=== PATIENT | female | born 1950 | race Caucasian/White ===

== ENCOUNTER 2016-09-20 08:36 | Day surgery (SDC) ==
[2016-09-20] MEDS ORDERED: LR 1,000 ML ONE (09:21)
[2016-09-20] MEDS ORDERED: MYLICON DROPS (DOSE) MISC ONE (11:49)
[2016-09-20] MEDS ORDERED: DIPRIVAN 1% ONE (12:26)
[2016-09-20 12:45] VITALS: BP 121/71
--- NOTE | 2016-09-25 04:21 | OPERATIVE NOTE ---
PROCEDURE DATE: 09/20/2016 REFERRING PHYSICIAN: Heath Peters MD. INDICATIONS FOR PROCEDURE: 1. Dysphagia. 2. Nausea. PROCEDURE PERFORMED: Esophagogastroduodenoscopy with dilation. CONSENT: Informed consent was obtained from the patient prior to the procedure. The risks, benefits, and alternatives were discussed with the patient and her family. MEDICATIONS: The patient received monitored anesthesia care. PERFORMING PHYSICIAN: Kindra Woodruff MD. ASSISTANTS: 1. [facility] 2. Grayson Morales RN. 3. Good [place] CRNA. 4. Deon Pantoja MD (anesthesia). COMPLICATIONS: There were no complications. ESTIMATED BLOOD LOSS: Less than 1 mL. SPECIMENS REMOVED: None. FINDINGS: After sedation was achieved, the upper endoscope was inserted to the efferent jejunum. The hypopharynx and tubular esophagus appeared normal to 34 cm. Between 34 and 35 cm, there was pill esophagitis with still dissolving pills adherent to the esophageal mucosa. The GE junction was measured at 35 cm from the incisors. There was mild resistance with passage of the scope through the lower esophagus. In the stomach, there were surgical changes consistent with a Mary- en-Y gastric bypass. The gastric pouch spanned from 35-40 cm. There was gastritis in the pouch. The gastrojejunal anastomosis appeared endoscopically normal. The efferent and the afferent jejunum appeared endoscopically normal. After the exam was complete, the scope was retracted into the gastric lumen. A balloon dilator was inserted via the scope and inflated to 18, 19, and 20 mm. Post dilation, there was decreased resistance and a small amount of heme at the lower esophageal sphincter consistent with esophageal dilation. Due to coughing, the upper esophageal sphincter was dilated at the time of the exam. The lumen was decompressed and the scope was removed without incident. IMPRESSION: 1. Normal hypopharynx. 2. Normal tubular esophagus. 3. Pill esophagitis. 4. Increased resistance at the lower esophageal sphincter at 35 cm. 5. Gastritis in the gastric pouch. 6. Normal gastrojejunal anastomosis. 7. Normal jejunum. 8. Successful dilation of the lower esophageal sphincter. RECOMMENDATION: 1. Continue Protonix 40 mg daily. 2. Begin 12 weeks of Carafate 1 g 4 times a day. 3. Consider a repeat modified barium swallow if symptoms persist. 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 4. Consider a repeat endoscopy if symptoms persist. 5. We will have the patient return to clinic in 3 months to assess interval progress.
== END 2016-09-20 13:06 | disposition home or self-care (01) ==
LOC: ENDO 08:36
PROVIDERS: ATTEND Internal Medicine Gastroenterology
DX: R13.12 Dysphagia, oropharyngeal phase (principal); K21.0 Gastro-esophageal reflux disease with esophagitis; K29.70 Gastritis, unspecified, without bleeding; K22.0 Achalasia of cardia; K58.9 Irritable bowel syndrome, unspecified; K59.01 Slow transit constipation; R10.11 Right upper quadrant pain; Z86.010 Personal history of colon polyps; E66.01 Morbid (severe) obesity due to excess calories; Z68.41 Body mass index [BMI] 40.0-44.9, adult; R11.2 Nausea with vomiting, unspecified; M19.90 Unspecified osteoarthritis, unspecified site; R53.83 Other fatigue; Z63.79 Other stressful life events affecting family and household; M21.371 Foot drop, right foot; Z98.84 Bariatric surgery status; Z96.651 Presence of right artificial knee joint; Z72.0 Tobacco use; Z79.899 Other long term (current) drug therapy; Z86.73 Personal history of transient ischemic attack (TIA), and cerebral infarction without residual deficits; Z79.891 Long term (current) use of opiate analgesic; Z79.02 Long term (current) use of antithrombotics/antiplatelets; Z80.0 Family history of malignant neoplasm of digestive organs; Z80.1 Family history of malignant neoplasm of trachea, bronchus and lung
CPT/HCPCS: J7120

== ENCOUNTER 2019-05-17 04:03 | Inpatient (IN) ==
[2019-05-17 04:43] LABS: BASO# 0.06 X1000 (0.0-0.2); BASO% 0.6 % (0.0-0.8); EOS# 0.22 X1000 (0.0-0.7); EOS% 2.1 % (0.0-10.0); HEMATOCRIT 42.4 % (37.0-47.0); HEMOGLOBIN 12.7 g/dL (12.0-16.0); IMM GRAN# 0.05 X1000 (0.0-0.04); IMM GRAN% 0.5 % (0.0-0.5); LYMPH# 1.34 X1000 (1.2-3.4); LYMPH% 12.8 % (20.5-51.1); MCH 30.5 PG (27-31); MCV 101.9 FL (81-99); MONO# 0.69 X1000 (0.11-0.59); MONO% 6.6 % (1.7-9.3); MPV 10.2 FL (7.4-10.4); NEUT# 8.11 X1000 (1.4-6.5); NEUT% 77.4 % (42.2-75.2); PLT 340 X1000 (130-400); RBC 4.16 XMIL (4.2-5.4); RDW 15.2 % (11.5-14.5); WBC 10.47 X1000 (4.8-10.8)
--- NOTE | 2019-05-17 05:03 | PROVIDER DOCUMENTATION ---
HPI-Syncope/Dizziness - General Chief Complaint: Fall Stated Complaint: fall Time Seen by Provider: 05/17/19 04:11 Source: patient, other (home caregiver) Allergies/Adverse Reactions: Patient Allergies Allergy/AdvReac Type Severity Reaction Status Date / Time codeine [Codeine] Allergy Unknown "MAKES ME Verified 04/01/19 12:38 STOP BREATHING" fentanyl Allergy ANAPHYLAXIS Verified 04/01/19 12:38 heparin Allergy Unknown Verified 04/01/19 12:38 Home Medications: Home Medication List Medication Instructions Recorded Confirmed Last Taken Type Tolterodine [Detrol] 2 mg PO BID 09/23/13 09/28/18 09/28/18 02:30 History Dabigatran Etexilate Mesylate 150 mg PO BID 06/23/14 09/28/18 09/23/18 History [Pradaxa] Dicyclomine HCl 10 mg PO BID 06/23/14 09/28/18 09/28/18 02:30 History Paroxetine [Paxil] 20 mg PO DAILY 01/29/15 09/28/18 09/28/18 02:30 History Pantoprazole [Protonix] 40 mg PO DAILY@0700 10/13/15 09/28/18 09/28/18 02:30 History Atorvastatin Calcium [Lipitor] 20 mg PO QHS 10/14/15 09/28/18 09/27/18 21:00 History Gabapentin [Neurontin] 800 mg PO TID 10/14/15 09/28/18 09/28/18 02:30 History Cbd Oil 1 drp PO DAILY 09/10/18 Unknown History Cholecalciferol (Vit D3) [Vitamin 5,000 unit PO ORDERED 09/10/18 09/10/18 Unknown History D] Cyanocobalamin 1,000 mcg IM DIRECTED 09/10/18 09/10/18 Unknown History Iron,Carbonyl [Iron] 45 mg PO DAILY 09/10/18 09/10/18 Unknown History Potassium 99 mg PO DAILY 09/10/18 09/10/18 Unknown History Oxycodone E.r. [Oxycontin] 10 mg PO TID PRN PRN 09/28/18 09/28/18 Unknown History Etodolac [Lodine] 400 mg PO BID CC #20 tab 04/01/19 Unknown Rx Nitrofurantoin Macrocrystal 100 mg PO BID #20 cap 04/01/19 Unknown Rx [Macrodantin] - History of Present Illness-Syncope/Dizzy Nature of Presenting Problem: 68 y/o WF brought to ER after falling out of her bed tonight landing on her rear per lawn caretaker. Caregiver also notes that pt has hx of taking too much of her muscle relaxers and might have taken too much last night. contracts analyst also notes that pt has had several falls recently due to her being dizzy. Pt has hx of chronic low back pain with recent epidurals. Pt will only speak to caregiver and not to staff at all. Caregiver notes that pt is usually normally very talkative and has no difficulty with speech. Prior Episodes: reports: recent history (dizziness and falls) Onset/Duration: reports: 4-6 hours ago Timing: reports: still present Position/Activity at time of episode: reports: lying (fell out of bed) Symptoms prior to episode: reports: unknown Context: reports: other (fell out of bed and notes being dizzy.) Loss of Consciousness: no loss of consciousness Location of injury. (If syncope resulted in an injury.): reports: none Current Symptoms: reports: dizzy Recently Seen Here or By Another Healthcare Provider: No - Dizziness Severity in ED: reports: moderate Dizziness Related Current/Associated Symptoms: reports: dizzy, chronic dizziness Any recent trauma/injury?: reports: minor Modifying Factors: improves with: movement of head Patient usually:: reports: walks without assistance Review of Systems - Adult - REVIEW OF SYSTEMS - ADULT ROS:: limited per condition (pt is a poor historian and refuses to talk to staff.) Constitutional: reports: no symptoms reported, see HPI Eyes: reports: no symptoms reported, see HPI Ears, Nose, Mouth & Throat: reports: no symptoms reported, see HPI Cardiovascular: reports: no symptoms reported, see HPI Respiratory: reports: no symptoms reported, see HPI Gastrointestinal: reports: no symptoms reported, see HPI Genitourinary: reports: no symptoms reported, see HPI Musculoskeletal: reports: no symptoms reported, see HPI Integumentary: reports: no symptoms reported, see HPI Neurological: reports: dizziness/vertigo, other (difficulty with speech) Psychiatric: reports: no symptoms reported, see HPI Endocrine: reports: no symptoms reported, see HPI Hematologic/Lymphatic: reports: no symptoms reported, see HPI Allergic/Immunologic: reports: no symptoms reported, see HPI All Other Systems: Reviewed and Negative Past History - Adult - PAST MEDICAL HISTORY-ADULT Review of Records: reports: Nursing Assessment Review, Medications Reviewed, Social history reviewed & non-contributory. Major Childhood Illnesses: reports: denies history Cardiovascular: reports: CHF, HTN, hyperlipidemia Respiratory: reports: COPD Gastrointestinal: reports: Crohn's, GERD Obstetrical/Gynecological: reports: denies history Genitourinary: reports: kidney disease Musculoskeletal: reports: denies history Neurological: reports: CVA, headaches/migraines Psychiatric: reports: depression Endocrine/Immune: reports: denies history Other Conditions: reports: cataract/glaucoma, other (left macular degeneration) - PRIOR SURGERIES/PROCEDURES Surgical/Procedure History: reports: cholecystectomy, hysterectomy, , tonsillectomy, other (Gastric Bypass, Total knee replacement, hernia repair, lumbar x2, abby filter, femur repair, colon resection) - PRIOR HOSPITALIZATIONS Prior Hospitalizations: reports: for similar symptoms (pt was seen in the er yeterday) - IMMUNIZATION STATUS Childhood Immunizations: See Nurse Assessment Flu Vaccine: See Nurse Assessment - FAMILY HISTORY Family History: reviewed, not pertinent Physical Exam-General - PHYSICAL EXAM-ADULT Exam Limited by: pt condition and refusing to speak to staff Initial Vital Signs Reviewed: Yes - CONSTITUTIONAL General Appearance: mild distress, slow to respond - EYES Eyes: PERRL/EOMI - HEAD, EARS, NOSE, MOUTH & THROAT HENMT: normocephalic/atraumatic, moist mucous membranes - NECK Neck: non-tender, full range of motion, supple, normal inspection - RESPIRATORY Respiratory: chest non-tender, lungs clear, normal breath sounds, no pleuratic chest pain, no respiratory distress, no accessory muscle use - CARDIOVASCULAR Cardiovascular: normal peripheral pulses, regular rate, rhythm, no edema, no gallop, no JVD, no murmur - GASTROINTESTINAL (ABDOMEN) Abdominal Exam: normal bowel sounds, non tender, soft, no organomegaly - LYMPHATIC Lymphatic: no adenopathy - MUSCULOSKELETAL Back Exam: normal inspection Extremity: normal range of motion, non-tender - SKIN Integumentary: normal color, normal turgor - NEUROLOGIC Neurologic: bullion weigher II-XII nml as tested, grossly normal, no motor/sensory deficits Progress - PLAN OF CARE/RESULTS Progress/Plan/Lab Results: Vital Signs - 8 hr 05/17/19 04:38 Temperature 97.9 F Pulse Rate 81 Respiratory Rate 16 Blood Pressure 135/80 O2 Sat by Pulse Oximetry 97 Laboratory Results - last 24 hr 05/17/19 05/17/19 05/17/19 04:32 04:32 05:27 WBC 10.47 RBC 4.16 L Hgb 12.7 Hct 42.4 MCV 101.9 H MCH 30.5 MCHC 30.0 L RDW Std Deviation 15.2 H Plt Count 340 MPV 10.2 Immature Gran % (Auto) 0.5 Neut % (Auto) 77.4 H Lymph % (Auto) 12.8 L [place] % (Auto) 6.6 Eos % (Auto) 2.1 Baso % (Auto) 0.6 Immature Gran # (Auto) 0.05 H Neut # (Auto) 8.11 H Lymph # (Auto) 1.34 [place] # (Auto) 0.69 H Eos # (Auto) 0.22 Baso # (Auto) 0.06 Sodium 146 H Potassium 4.5 Chloride 107 Carbon Dioxide 28 Anion Gap 11 BUN 10 Creatinine 1.1 H Estimated GFR/1.73 m2 50 BUN/Creatinine Ratio 9 Glucose 105 H Calculated Osmolality 290 Calcium 9.4 Total Bilirubin 0.23 AST 18 ALT 14 Alkaline Phosphatase 115 H Total Protein 5.9 L Albumin 3.9 Globulin 2.0 Albumin/Globulin Ratio 2.0 Urine Source CATH Urine Color STRAW Urine Turbidity CLEAR Urine pH 6.0 Ur Specific [place] 1.008 Urine Protein NEGATIVE Ur Glucose (Stick) NEGATIVE Ur Ketones (Stick) NEGATIVE Urine Blood NEGATIVE Urine Nitrite NEGATIVE Urine Bilirubin NEGATIVE Urobilinogen Dipstick NORMAL Urine Leukocytes NEGATIVE Urine WBC (Auto) <10 Urine RBC (Auto) <10 U Epithel Cells (Auto) <10 Urine Bacteria (Auto) NEGATIVE Urine Opiates Screen Ur Oxycodone Screen Ur Methadone, Qual Ur Barbiturates Screen Ur Phencyclidine Scrn Ur Amphetamines Screen U Benzodiazepines Scrn Urine Cocaine Screen U Cannabinoids Screen 05/17/19 05:27 WBC RBC Hgb Hct MCV MCH MCHC RDW Std Deviation Plt Count MPV Immature Gran % (Auto) Neut % (Auto) Lymph % (Auto) [place] % (Auto) Eos % (Auto) Baso % (Auto) Immature Gran # (Auto) Neut # (Auto) Lymph # (Auto) [place] # (Auto) Eos # (Auto) Baso # (Auto) Sodium Potassium Chloride Carbon Dioxide Anion Gap BUN Creatinine Estimated GFR/1.73 m2 BUN/Creatinine Ratio Glucose Calculated Osmolality Calcium Total Bilirubin AST ALT Alkaline Phosphatase Total Protein Albumin Globulin Albumin/Globulin Ratio Urine Source Urine Color Urine Turbidity Urine pH Ur Specific [place] Urine Protein Ur Glucose (Stick) Ur Ketones (Stick) Urine Blood Urine Nitrite Urine Bilirubin Urobilinogen Dipstick Urine Leukocytes Urine WBC (Auto) Urine RBC (Auto) U Epithel Cells (Auto) Urine Bacteria (Auto) Urine Opiates Screen NONE DETECTED Ur Oxycodone Screen PRESUMPTIVE POSITIVE A Ur Methadone, Qual NONE DETECTED Ur Barbiturates Screen NONE DETECTED Ur Phencyclidine Scrn NONE DETECTED Ur Amphetamines Screen NONE DETECTED U Benzodiazepines Scrn NONE DETECTED Urine Cocaine Screen NONE DETECTED U Cannabinoids Screen NONE DETECTED Orders Category Date Time Status Nursing- Obtain EKG ONCE Care 05/17/19 04:[address] HEAD/C-SPINE W/O CONTRAST [CT] Stat Exams 05/17/19 04:22 Completed AMMONIA [CHEM] Stat Lab 05/17/19 07:32 Uncollected CBC WITH ELECTRONIC DIFF [HEME] Stat Lab 05/17/19 04:32 Completed COMPREHENSIVE METABOLIC PANEL [CHEM] Stat Lab 05/17/19 04:32 Completed UA [URINALYSIS W/POSS RFLX CULT] [URINALYSIS] Stat Lab 05/17/19 05:27 Completed URINE DRUG SCREEN Stat Lab 05/17/19 05:27 Completed 0.9% Sodium Chloride Inj [Ns] 1,000 ml Med 05/17/19 06:04 Active IV 125 mls/hr Naloxone [Narcan] Med 05/17/19 06:15 Discontinued 0.4 mg IV NOW ONE EKG [EKG] Stat Ther 05/17/19 04:19 Draft Result Diagrams: 05/17/19 04:32 05/17/19 04:32 - EKG 1 Time of EKG reading by physician:: 05:05 EKG Read and Signed by:: Brock Pugh EKG Interpretation (*Must complete 3 of following elements*): Abnormal Rate: 86 Rhythm: nsr [place]in[place]: normal QRS: normal [place] Interval: normal ST Wave: non-specific ST changes - CT/MRI 1 CT Study: Cervical Spine, Head Impression: Normal, See EMR Report - CONSULTS/PCP/HOSPITALIST Notification #1 *Consult/PCP/Hospitalist*: Chelle ham Hospitalist Time Discussed: 07:48 Consult Disposition: Will see in ED, Admit Departure - Departure Date of Disposition Decision: 05/17/19 Time of Disposition Decision: 07:48 DIAGNOSIS: Altered mental status, Fall, Renal insufficiency Disposition: ADMITTED INPATIENT 09 Certified Medical Emergency: Emergent Condition: Fair Referrals and Follow-Ups: Tyrone Cook MD [Primary Care Provider] - - Critical Care Note This patient required my direct & personal management of CC.: No Attestation - Physician/ REBECCA Attestation Patient care was provided by Advanced Practice Provider:: No The physician spent face to face time with patient:: Yes Advanced Practice Provider documentation review:: Supervising physician onsite and consulted in the evaluation and care of this patient. The physician did have a face to face encounter with the patient.
[2019-05-17 05:05] LABS: ALBUMIN 3.9 g/dL (3.5-5.0); CALCIUM 9.4 mg/dL (8.8-10.2); CREATININE 1.1 mg/dL (0.5-0.9); POTASSIUM 4.5 mmol/L (3.5-5.1); TOTAL BILIRUBIN 0.23 mg/dL (0.20-1.00); TOTAL PROTEIN 5.9 g/dL (6.3-8.3)
[2019-05-17 05:36] LABS: URINE SOURCE CATH
--- NOTE | 2019-05-17 05:37 | EKG Report ---
Test Performed on : 05/17/2019 05:05:23 AM Test Reason : weakness, fall Blood Pressure : / mmHG Vent. Rate : 086 BPM Atrial Rate : 086 BPM P-R Int : 176 ms QRS Dur : 082 ms QT Int : 382 ms P-R-T Axes : 046 001 -09 degrees QTc Int : 457 ms Normal sinus rhythm. Inferior infarct (cited on or before 17-MAY-2019) T wave abnormality, consider anterior ischemia Abnormal ECG When compared with ECG of 17-MAY-2019 05:04, (Unconfirmed) premature ventricular complexes. are no longer present Unconfirmed Result
[2019-05-17 05:42] LABS: BILIRUBIN URINE NEGATIVE (NEGATIVE); BLOOD URINE NEGATIVE (NEGATIVE); COLOR STRAW; GLUCOSE URINE NEGATIVE (NEGATIVE); KETONE URINE NEGATIVE (NEGATIVE); LEUKOCYTES URINE NEGATIVE (NEGATIVE); NITRITE URINE NEGATIVE (NEGATIVE); PROTEIN URINE NEGATIVE (NEGATIVE); SP GRAVITY URINE 1.008; TURBIDITY URINE CLEAR (CLEAR); UROBILINOGEN URINE NORMAL (NORMAL)
[2019-05-17 05:43] LABS: UR EPITHELIAL CELLS <10 /HPF (<10); URINE BACTERIA NEGATIVE /HPF; URINE RBC <10 /HPF (<10); URINE WBC <10 /HPF (<10)
[2019-05-17] MEDS ORDERED: NS 1,000 ML IV ONE (06:04)
[2019-05-17 06:11] LABS: UR AMPHETAMINES QUAL NONE DETECTED (NONE DETECT); UR BARBITUATES QUAL NONE DETECTED (NONE DETECT); UR BENZODIAZEPIN QUAL NONE DETECTED (NONE DETECT); UR CANNABINOIDS QUAL NONE DETECTED (NONE DETECT); UR COCAINE QUAL NONE DETECTED (NONE DETECT); UR METHADONE QUAL NONE DETECTED (NONE DETECT); UR OPIATES QUAL NONE DETECTED (NONE DETECT); UR OXYCODONE QUAL PRESUMPTIVE POSITIVE (NONE DETECT); UR PCP QUAL NONE DETECTED (NONE DETECT)
[2019-05-17] MEDS ORDERED: NARCAN IV ONE (06:15)
--- NOTE | 2019-05-17 06:25 | Diag Imaging Result Doc PS360 ---
CT HEAD/C-SPINE W/O CONTRAST - 05/17/2019 INDICATION: head injury/pain COMPARISON: 04/01/2019 FINDINGS: Head CT: There is right periorbital soft tissue swelling. The ventricles and sulci are normal in size and contour. No intracranial mass or hemorrhage. The skull is intact. The sinuses, mastoids, and middle ears are clear. Cervical spine: Stable moderate multilevel degenerative disc disease worst at C5-C6. No fracture or subluxation. No central canal stenosis. IMPRESSION: Right periorbital contusion. Otherwise no acute injury to the head or cervical spine. This exam was performed using automated exposure control, adjustment of mA or kV according to patient size, and/or use of iterative reconstruction technique Electronically signed by Reza Park 05/17/2019 6:23 AM
--- NOTE | 2019-05-17 08:24 | Diag Imaging Result Doc PS360 ---
EXAM: CHEST-PORTABLE INDICATION: r/o pna TECHNIQUE: One view COMPARISON: 03/15/2016 FINDINGS: There is evidence of prior granulomatous disease, stable. The lungs are grossly clear. There is no discrete pleural fluid collection or pneumothorax. The cardiomediastinal silhouette and central vasculature are grossly unremarkable. IMPRESSION: No evidence of acute pathology by plain radiograph. Electronically signed by Shawn Leija 05/17/2019 8:21 AM
--- NOTE | 2019-05-17 09:24 | Diag Imaging Result Doc PS360 ---
CT ABD/PELVIS W/IV CONT ONLY - 05/17/2019 INDICATION: abdomen tenderness COMPARISON: 04/01/2019 FINDINGS: There is severe constipation with severe rectal stool impaction. There is severe patient motion artifact. There are cholecystectomy clips. There are surgical changes of the stomach. No bowel obstruction or inflammation. There is mild inflammatory edema around the urinary bladder. No bladder masses. Uterus is absent. No free air or free fluid. Stable extensive surgical changes to the spine. No acute bony lesions. IMPRESSION: 1. Severe constipation with rectal stool impaction. 2. Cystitis. This exam was performed using automated exposure control, adjustment of mA or kV according to patient size, and/or use of iterative reconstruction technique Electronically signed by Reza Park 05/17/2019 9:22 AM
[2019-05-17] MEDS ORDERED: NS 1,000 ML IV SCH (12:42)
[2019-05-17 13:25] LABS: ALLEN TEST YES; BE 1.9 mmoll (-3.0-3.0); BLOOD TYPE ARTERIAL; HCO3-(ACT) 26.3 mmoll (20.0-26.0); METHB 1.1 % (0.0-1.5); MODALITY ROOM AIR; O2(CT) 13.9 mL/dL (15.0-23.0); O2HB 91.7 % (95.0-99.0); PCO2(98.6) 41 mmHg (35-45); PO2(98.6) 73 mmHg (60-100); SAMPLE BLOOD; SAO2 96.3 % (95.0-100.0); THB 10.7 g/dL (11.5-17.4); pH(98.6) 7.42 (7.35-7.45)
--- NOTE | 2019-05-17 13:53 | HISTORY AND PHYSICAL ---
PRIMARY CARE PROVIDER: Dr. Heath Peters. CHIEF COMPLAINT: Per caregiver altered mental status, recent falls. HISTORY OF PRESENT ILLNESS: Ms Burt is a 68-year-old female who was brought into the ED by her caregiver who reports that she was prescribed baclofen yesterday by her primary care provider after complaining of some back pain. She received baclofen 90 pills. There were 4 missing out of the bottle. She is to take 3 t.i.d. She also reported that there was some Benadryl found beside her bedside. She reported sometime yesterday she have fallen and hit her head. She does have a black with some swelling on the left side. When the caregiver got there this a.m. she was moaning and groaning and twitching in the bed in associated her brought to the ED. The last time she saw her, she was up normally walking and talking with her walker and completely awake, alert, and oriented. Workup in the ED with a head and cervical spine CT just showed a right periorbital contusion. Otherwise, no acute injury to the head or cervical spine. LABORATORY DATA: White count 10, hemoglobin and hematocrit of 12 and 42, and a platelet count of 340,000. Sodium 146, a potassium of 4.5, a BUN of 10, creatinine 1.1, blood glucose of 105. Ammonia level of 26. Urinalysis was negative. Toxicology screen was positive for oxycodone. Currently ordered a chest x-ray and a CT of the abdomen and pelvis. The patient really did not respond to any of my questions. She did not follow any commands, however, when I mashed on her abdomen she did react and grimace with pain. PAST MEDICAL HISTORY: Crohn disease, hypertension, morbid obesity, chronic renal failure. 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 Ischemic colitis, irritable bowel syndrome, hemorrhoids, GERD, colon polyps, neuropathy, anemia, depression, degenerative disk disease, bulging disk. PAST SURGICAL HISTORY: Gastric bypass, section x2, hysterectomy, right hemicolectomy with resection, bilateral knee surgery, right carpal tunnel repair, incisional hernia repair, left cyst removal on the leg, EGD with dilatation, ventral hernia repair. SOCIAL HISTORY: She lives at home with her son. She has a caregiver for homemaking reasons manager perioperative and to help with errands on Monday, , Monday. No alcohol, tobacco, or illicit drug use. ALLERGIES: To codeine, fentanyl, and heparin. MEDICATIONS: Home medications are being compiled. REVIEW OF SYSTEMS: Hard to obtain secondary to patient's condition. PHYSICAL EXAMINATION: VITAL SIGNS: Temperature is 97.9 degrees, heart rate 81, respirations 16, blood pressure 135/80, O2 is 97% on room air. GENERAL: Ms. Burt is a 68-year-old female who is lying in the bed, does not really respond to questioning. She does move around. She will do some twitching with her upper and lower extremities. It does not seem like any seizure-like activity. However, she did grimace in pain when I mashed on her abdomen, but she did not open her eyes or follow any commands. HEENT: She does have a right orbital bruising from a previous fall yesterday, normocephalic. PERRL. NECK: Supple, trachea midline. CARDIOVASCULAR: S1, S2 appreciated. No murmurs, gallops, or rubs noted. RESPIRATORY: Lung sounds clear throughout all lung chan. GASTROINTESTINAL: Soft, tender to palpation throughout all quadrants. Positive bowel sounds. EXTREMITIES: Lower extremities negative for edema. The patient does move all extremities. At times she does some jerking motions. They did not appear to be rhythmic. They appear to be more when she is being physically stimulated. NEUROLOGIC: Hard to assess secondary to her condition. DIAGNOSTIC DATA: Head, cervical spine CT showed a right periorbital contusion. Otherwise, no acute injury to the head or cervical spine. LABORATORY DATA: White count 10, hemoglobin and hematocrit 12 and 42, platelet count is 340,000. Sodium 146, potassium 4.5, BUN 10, creatinine 1.1 blood glucose is 105. Urinalysis negative for bacteria, negative for nitrates. Tox screen was positive for oxycodone. ASSESSMENT AND PLAN: 1. Toxic encephalopathy. Patient has taken four Baclofen, that is in a prescription for her, out of a total of 90. She had 86 left. She had just got the prescription yesterday afternoon. Caregiver at bedside, was unsure if she makes that with some Benadryl and her other reported home medications. She was last seen normal yesterday afternoon, awake, alert, oriented, and walking with her walker. We will continue with IV fluids. Her head CT was negative. We will check a chest x-ray as well as CT of the abdomen to rule out any possible infectious etiology. 2. History of Crohn's disease. Aware. Stable. 3. Hypertension. Stable. 4. Chronic kidney disease. Stable. 5. Pulmonary embolus and deep venous thrombosis in the past. We will continue home medications when able. She does have a filter. She does have an allergy to heparin. She had FER in the past. 6. Dyslipidemia. Aware. 7. Anemia. Aware. 8. Depression. Aware. 9. Degenerative disk disease and bulging disk. Aware. 10. Further recommendation to follow physician evaluation, laboratory and diagnostic data. Dictated by PRADEEP Etienne for Gabby Umaña MD cc: MD Heath Ontiveros MD I performed a face to face encounter on the patient. I reviewed all labs and imaging on the patient. I agree with the H&P as dictated. is a 69 year old female who presented to the hospital with confusion. On exam, the patient was noted to be lethargic. Will admit the patient as dictated above. [facility]
[2019-05-17] MEDS ORDERED: APRESOLINE IV PRN (14:03)
[2019-05-17] MEDS: D5W 1,000 ML IV SCH (14:15)
[2019-05-17] MEDS ORDERED: DULCOLAX PR SCH (21:00)
[2019-05-18] MEDS: D5W 1,000 ML IV SCH ×3 (00:51→23:33)
[2019-05-18 06:01] LABS: BASO# 0.05 X1000 (0.0-0.2); BASO% 0.6 % (0.0-0.8); EOS# 0.18 X1000 (0.0-0.7); EOS% 2.1 % (0.0-10.0); HEMATOCRIT 41.5 % (37.0-47.0); HEMOGLOBIN 12.5 g/dL (12.0-16.0); LYMPH# 1.54 X1000 (1.2-3.4); MCH 30.3 PG (27-31); MCHC 30.1 g/dL (33-37); MCV 100.5 FL (81-99); MONO% 8.2 % (1.7-9.3); MPV 10.5 FL (7.4-10.4); NEUT# 6.07 X1000 (1.4-6.5); NEUT% 71.1 % (42.2-75.2); PLT 305 X1000 (130-400); RBC 4.13 XMIL (4.2-5.4); WBC 8.54 X1000 (4.8-10.8)
[2019-05-18 06:30] LABS: ALB/GLOB RATIO 1.4; ALBUMIN 3.4 g/dL (3.5-5.0); CALCIUM 8.9 mg/dL (8.8-10.2); MAGNESIUM 1.7 mg/dL (1.5-2.7); POTASSIUM 4.4 mmol/L (3.5-5.1); TOTAL BILIRUBIN 0.47 mg/dL (0.20-1.00); TOTAL PROTEIN 5.9 g/dL (6.3-8.3)
--- NOTE | 2019-05-18 07:31 | EKG Report ---
Test Performed on : 05/18/2019 06:04:53 AM Test Reason : chest pain Blood Pressure : / mmHG Vent. Rate : 085 BPM Atrial Rate : 085 BPM P-R Int : 172 ms QRS Dur : 078 ms QT Int : 390 ms P-R-T Axes : 059 008 000 degrees QTc Int : 464 ms Sinus rhythm. with occasional premature ventricular complexes. Nonspecific T wave abnormality Abnormal ECG When compared with ECG of 17-MAY-2019 05:05, (Unconfirmed) premature ventricular complexes. are now present Unconfirmed Result
[2019-05-18] MEDS: ZOFRAN IV PRN ×2 (15:52→23:39)
[2019-05-18] MEDS: MORPHINE IV PRN ×3 (15:59→23:33)
--- NOTE | 2019-05-18 19:31 | PROGRESS NOTE ---
DATE: 05/18/2019 SUBJECTIVE: The patient still remains confused. She is not able to follow commands. She moans out in pain occasionally. OBJECTIVE: Vital Signs: Temperature 98.6 degrees, blood pressure 151/89, heart rate 81, respirations 14, O2 saturations 100% on room air. General: This is a chronically ill-appearing elderly female lying in bed in no acute distress. Heart: S1, S2 normal. Regular rate and rhythm. Lungs: Clear to auscultation bilaterally. Abdomen: Positive bowel sounds. Soft, nontender, nondistended. Extremities: No edema, no cyanosis. Neurologic: The patient is lethargic. She does not follow commands. LABS: Sodium 144, potassium 4.4, chloride 106, CO2 25, BUN 9, creatinine 1, glucose 94. White blood cell count 8.5, hemoglobin 12, hematocrit 41, platelets 305,000. ASSESSMENT AND PLAN: 1. Metabolic encephalopathy. The patient is still lethargic. A head CT was unremarkable. We will consult with Neurology on Monday. We will continue to monitor the patient closely for improvement. 2. History of pulmonary embolism and DVT status post IVC filter placement. Aware. 3. History of cerebrovascular accident. Aware. 4. Coronary artery disease. Aware. 5. Hypertension. Stable. We will cover the patient with IV p.r.n. hydralazine since she is n.p.o. at this time. 6. Constipation. Improved. The patient has had several bowel movements. 7. Hypernatremia. Improved. Continue on D5W. 8. Chronic kidney disease. Stable. 9. Chronic back pain. Aware. 10. Deep vein thrombosis prophylaxis. Continue with SCDs. cc: Gabby Umaña MD
[2019-05-19] MEDS: MORPHINE IV PRN ×6 (00:43→21:10)
[2019-05-19] MEDS: TYLENOL PO PRN (02:01)
[2019-05-19 04:50] LABS: HEMOGLOBIN 11.3 g/dL (12.0-16.0); MCH 30.7 PG (27-31); MCHC 31.4 g/dL (33-37); MCV 97.8 FL (81-99); MPV 10.5 FL (7.4-10.4); RBC 3.68 XMIL (4.2-5.4); RDW 14.7 % (11.5-14.5); WBC 8.93 X1000 (4.8-10.8)
[2019-05-19 05:11] LABS: AGAP 13; BUN 7 mg/dL (8-22); CALCIUM 8.2 mg/dL (8.8-10.2); CHLORIDE 107 mmol/L (98-107); COSMO 283; CREATININE 0.8 mg/dL (0.5-0.9); ESTIMATED GFR > 60; GLUCOSE 108 mg/dL (70-104); POTASSIUM 3.2 mmol/L (3.5-5.1); SODIUM 143 mmol/L (136-145); TCO2 23 mmol/L (25-35)
[2019-05-19] MEDS: PROTONIX IV SCH (06:03)
[2019-05-19] MEDS ORDERED: POTASSIUM CHLORIDE 60 MEQ in NS 500 ML IV ONE (08:00)
[2019-05-19] MEDS ORDERED: MAGNESIUM SULFATE 2 GM/S.W.I. 2 GM/50 ML IVPB IV ONE (08:37)
--- NOTE | 2019-05-19 08:42 | Diag Imaging Result Doc PS360 ---
CHEST-1 VIEW - 05/19/2019 INDICATION: dyspnea COMPARISON: 05/17/2019 FINDINGS: There has been improvement in the right perihilar infiltrate or atelectasis. No new infiltrates. Heart size is top normal. Lung volumes remain somewhat low. IMPRESSION: Low lung volumes but no acute disease. Electronically signed by Reza Park 05/19/2019 8:40 AM
[2019-05-19] MEDS: D5W 1,000 ML IV SCH (09:13)
[2019-05-19] MEDS: ZOFRAN IV PRN ×3 (09:55→17:31)
[2019-05-19] MEDS: DETROL PO SCH ×2 (10:54→22:51)
[2019-05-19] MEDS: PAXIL PO SCH (10:54)
[2019-05-19] MEDS: OXYCONTIN PO PRN (11:27)
[2019-05-19] MEDS: NEURONTIN PO SCH ×2 (13:26→22:52)
[2019-05-19] MEDS ORDERED: SODIUM CHLORIDE 0.9% INJ PRN (20:47)
[2019-05-19] MEDS: PHENERGAN IV PRN (21:10)
[2019-05-19] MEDS: PRADAXA PO SCH (22:50)
[2019-05-19] MEDS: BENTYL PO SCH (22:50)
[2019-05-19] MEDS: LIPITOR PO SCH (22:50)
[2019-05-20] MEDS: MORPHINE IV PRN ×5 (01:50→17:15)
[2019-05-20] MEDS: ZOFRAN IV PRN (01:50)
[2019-05-20] MEDS: PROTONIX IV SCH (04:06)
[2019-05-20] MEDS: PHENERGAN IV PRN ×4 (05:28→17:15)
[2019-05-20 07:11] LABS: HEMATOCRIT 39.6 % (37.0-47.0); HEMOGLOBIN 12.2 g/dL (12.0-16.0); MCHC 30.8 g/dL (33-37); MCV 100.5 FL (81-99); MPV 10.5 FL (7.4-10.4); RBC 3.94 XMIL (4.2-5.4); WBC 8.58 X1000 (4.8-10.8)
[2019-05-20 07:37] LABS: AGAP 11; BUN 7 mg/dL (8-22); CALCIUM 8.8 mg/dL (8.8-10.2); CHLORIDE 106 mmol/L (98-107); COSMO 281; CREATININE 0.9 mg/dL (0.5-0.9); ESTIMATED GFR > 60; GLUCOSE 90 mg/dL (70-104); POTASSIUM 4.5 mmol/L (3.5-5.1); SODIUM 142 mmol/L (136-145); TCO2 25 mmol/L (25-35)
[2019-05-20] MEDS: BENTYL PO SCH ×2 (08:32→21:05)
[2019-05-20] MEDS: PAXIL PO SCH (08:32)
[2019-05-20] MEDS: PRADAXA PO SCH ×2 (08:34→21:04)
[2019-05-20] MEDS: NEURONTIN PO SCH ×3 (08:35→21:05)
[2019-05-20] MEDS: OXYCONTIN PO PRN (08:35)
[2019-05-20] MEDS: DETROL PO SCH ×2 (08:36→21:04)
--- NOTE | 2019-05-20 08:37 | PROGRESS NOTE ---
DATE: 05/19/2019 SUBJECTIVE: The patient is awake and alert, she states that she is having back pain. OBJECTIVE: Vital Signs: Temperature 98 degrees, blood pressure 145/81, heart rate 83, respirations 18, O2 saturation is 100% on room air. General: This is a chronically ill-appearing female lying in bed in no acute distress. Heart: S1, S2 normal. Lungs: Clear to auscultation bilaterally. Abdomen: Positive bowel sounds. Soft, nontender, nondistended. Extremities: No edema, no cyanosis. Neuro: The patient is alert and oriented x4. LABS: Hemoglobin 11, hematocrit 36, platelets 301,000. Sodium 143, potassium 3.2, chloride 107, CO2 23, BUN 7, creatinine 0.8, glucose 108, magnesium 1.6, phosphorus 3.7. Chest x-ray shows low lung volumes no acute disease. ASSESSMENT AND PLAN: 1. Metabolic encephalopathy. Resolved. The patient is alert and oriented. This is likely secondary to over usage of baclofen. 2. Chronic back pain. Continue on p.r.n. OxyContin extended release. 3. History of pulmonary embolism and deep vein thrombosis status post inferior vena cava filter placement. The patient is on Pradaxa. 4. Hypertension. Stable. 5. Coronary artery disease. Aware. Continue on the current medications. 6. History of cerebrovascular accident. Physical therapy has been consulted. 7. Hypernatremia. Resolved. 8. Constipation, resolved. 9. Disposition. Will consult physical therapy. cc: Gabby Umaña MD
[2019-05-20] MEDS: TYLENOL PO PRN (08:38)
[2019-05-20] MEDS: FIORICET PO PRN (14:06)
--- NOTE | 2019-05-20 19:48 | PROGRESS NOTE ---
DATE: 05/20/2019 SUBJECTIVE: The patient complains of a migraine headache. Otherwise, she has no other complaints today. OBJECTIVE: Vital Signs: Temperature 98.5 degrees, blood pressure 93/64, heart rate 92, respirations 16, O2 saturation 94% on room air. General: This is a chronically ill-appearing female lying in bed in no acute distress. Heart: S1, S2 normal. Regular rate and rhythm. Lungs: Equal air entry bilaterally. No wheezing. No rales. Abdomen: Positive bowel sounds. Soft, nontender, nondistended. Extremities: No edema. No cyanosis. Neurologic: The patient is alert and oriented x3. LABS: White blood cell count 8.5, hemoglobin 12, hematocrit 39, platelets 306,000. Sodium 142, potassium 4.5, chloride 106, CO2 25, BUN 7, creatinine 0.9, glucose 90, magnesium 2, phosphorus 4.1. ASSESSMENT AND PLAN: 1. Metabolic encephalopathy. Resolved. The patient likely took too much baclofen and suffered a fall. 2. Chronic back pain. Continue on the p.r.n. OxyContin ER. 3. Migraine headache. We will give the patient a dose of Fioricet. 4. History of pulmonary embolism and DVT status post IVC filter placement. The patient is on Pradaxa. 5. Hypertension. Stable. 6. Coronary artery disease. Aware. 7. History of cerebrovascular accident. Aware. 8. Constipation. Continue with laxative therapy. 9. Disposition. The patient should be stable for discharge home tomorrow. Physical therapy has been consulted. cc: Gabby Umaña MD
[2019-05-20] MEDS: COLACE PO SCH (21:04)
[2019-05-20] MEDS: LIPITOR PO SCH (21:04)
[2019-05-20] MEDS: MIRALAX PO SCH (21:27)
[2019-05-21] MEDS: SODIUM CHLORIDE 0.9% INJ SCH (04:52)
[2019-05-21] MEDS: FIORICET PO PRN ×3 (04:52→20:07)
[2019-05-21] MEDS: PROTONIX IV SCH (04:52)
[2019-05-21] MEDS: OXYCONTIN PO PRN (05:37)
[2019-05-21 07:11] LABS: HEMATOCRIT 39.7 % (37.0-47.0); MCH 31.2 PG (27-31); MCHC 30.2 g/dL (33-37); MCV 103.1 FL (81-99); MPV 10.8 FL (7.4-10.4); RBC 3.85 XMIL (4.2-5.4); RDW 15.2 % (11.5-14.5); WBC 11.8 X1000 (4.8-10.8)
[2019-05-21] MEDS: MORPHINE IV PRN ×3 (07:17→18:48)
[2019-05-21] MEDS: PHENERGAN IV PRN ×2 (07:17→13:39)
[2019-05-21 08:04] LABS: CALCIUM 8.7 mg/dL (8.8-10.2); CREATININE 1.6 mg/dL (0.5-0.9); POTASSIUM 5.2 mmol/L (3.5-5.1)
[2019-05-21] MEDS: NEURONTIN PO SCH ×3 (09:19→20:08)
[2019-05-21] MEDS: PRADAXA PO SCH ×2 (09:19→20:07)
[2019-05-21] MEDS: PAXIL PO SCH (09:19)
[2019-05-21] MEDS: BENTYL PO SCH ×2 (09:19→20:08)
[2019-05-21] MEDS: DETROL PO SCH ×2 (09:20→20:08)
[2019-05-21] MEDS: COLACE PO SCH ×2 (09:20→20:08)
[2019-05-21] MEDS: MIRALAX PO SCH ×2 (09:20→20:08)
[2019-05-21] MEDS: LIPITOR PO SCH (20:08)
[2019-05-21 21:33] LABS: CALCIUM 8.2 mg/dL (8.8-10.2); CREATININE 1.4 mg/dL (0.5-0.9); POTASSIUM 4.3 mmol/L (3.5-5.1)
--- NOTE | 2019-05-22 04:35 | PROGRESS NOTE ---
DATE: 05/21/2019 INTERVAL HISTORY: No acute events overnight. Her pulse has been routinely in 90s. She is denying any new complaints. She does have hyperkalemia and acute kidney injury for which a BMP has been ordered. She states she is feeling better, and her cognitive function has cleared. Denies any chest pain or shortness of breath. VITALS: Temperature of 99.5 degrees, pulse 100, respiratory rate 14, blood pressure 114/78, and saturating 98% on room air. PHYSICAL EXAMINATION: General: Not in acute distress. Right-sided periorbital hematoma which is improving. Air entry bilaterally equal. No wheeze, rhonchi or crackles. S1, S2 normal. No murmur or gallop. Abdomen: Soft and nontender. Extremities: No lower extremity edema. Neurologic: She is alert and oriented x3. LABORATORY: Labs are suggestive of potassium of 5.2, BUN of 20, and creatinine of 1.6. MICROBIOLOGY: No new data. IMAGING: No new data. ASSESSMENT AND PLAN: 1. Acute metabolic encephalopathy, likely related to baclofen use on top of opioid as well as gabapentin use now resolved. Head CT was unremarkable. Advance diet to regular. 2. Chronic back pain and migraine headache. Continue home oxycodone extended release. I will check the [place] prescription drug monitoring program. Continue home gabapentin. I counseled her about tapering these medications down considering long-term dependence and adverse effect. She understood it. I advised her to do that under medical supervision. 3. Acute kidney injury. She states she only made urine once. I will follow up with BMP. She is alert and oriented so urinary retention is unlikely. I placed hematogenesis orders to report to the night team about the BMP results. 4. Essential hypertension, history of CVA, history of DVT and PE. Aware. Continue home Pradaxa. She is status post inferior vena cava filter placement. I will give her sumatriptan for migraine. 5. Disposition: If the patient continues to do better, my plan is to discharge her home tomorrow. Plan of care discussed with her. All questions have been answered. cc: Toni Downs MD
[2019-05-22] MEDS: PROTONIX IV SCH (06:19)
[2019-05-22 07:40] LABS: CALCIUM 8.3 mg/dL (8.8-10.2); CREATININE 1.1 mg/dL (0.5-0.9)
[2019-05-22] MEDS: OXY IR PO PRN ×2 (07:46→16:05)
[2019-05-22] MEDS: NEURONTIN PO SCH ×3 (08:55→20:51)
[2019-05-22] MEDS: COLACE PO SCH ×2 (09:00→20:51)
[2019-05-22] MEDS: MIRALAX PO SCH ×2 (09:00→20:53)
[2019-05-22] MEDS: DETROL PO SCH ×2 (09:00→20:51)
[2019-05-22] MEDS: PRADAXA PO SCH ×2 (09:00→20:52)
[2019-05-22] MEDS: BENTYL PO SCH ×2 (09:00→20:52)
[2019-05-22] MEDS: PAXIL PO SCH (09:00)
[2019-05-22] MEDS: IMITREX SUBQ SUBQ PRN (09:31)
[2019-05-22] MEDS ORDERED: PNEUMOVAX 23 IM ONE (11:04)
--- NOTE | 2019-05-22 16:41 | Diag Imaging Result Doc PS360 ---
CT LUMBAR SPINE W/O CONTRAST - 05/22/2019 INDICATION: Evaluate for spinal cord compression/disc bulge COMPARISON: CT abdomen pelvis 05/17/2019 FINDINGS: There are extensive posterior fusion rods with disc spacers at L2-L3-L4-L5. There is also been laminectomy at L3-L4-L5. No hardware fracture or loosening. No fracture or subluxation. No severe central canal stenosis. There is advanced disc degeneration at L1-L2 with disc bulging and moderate central canal stenosis. IMPRESSION: Lumbar spondylosis mainly at L1-L2. This exam was performed using automated exposure control, adjustment of mA or kV according to patient size, and/or use of iterative reconstruction technique Electronically signed by Reza Park 05/22/2019 4:38 PM
--- NOTE | 2019-05-22 19:47 | PROGRESS NOTE ---
DATE: 05/22/2019 INTERVAL HISTORY: Her kidney function was improving overnight. It shows further improvement today morning. SUBJECTIVE: Patient denies any new complaints. We discussed about improving kidney function. We discussed about having a discussion with the family doctor and the pain doctor about decreasing her pain medication. She agrees. My initial plan was to discharge her home. However, while ambulating, she had unwitnessed fall, though her room door was open and no one really heard any voice, though it was right in front of the nursing station. However, she was found down on the floor. She was responsive. When we saw her, she was just complaining of some back pain, so I canceled the discharge order. She could not tell me the circumstances of fall. She states that she was able to come out of bed and she was going to the trash can, but suddenly she fell down. She denies noticing any blackouts. When she realized, she found herself on the floor. She is not able to tell me if her knees gave out which has been happening since a few months to a few years. Unfortunately, she was already discharged from telemetry, so this could not be detected on telemetry, and I discussed with the telemetry team about re-applying the leads. VITALS: Temperature 97.5 degrees, pulse 68, respiratory rate 20, blood pressure 125/95, saturating 100% room air. PHYSICAL EXAMINATION: General: Morbidly obese, not in acute distress. Oral cavity: Moist. Lungs: Air entry bilaterally equal. No wheeze, rhonchi, crackles. Heart: S1, S2 normal. No murmur, rub, or gallop. Eyes: Right periorbital hematoma is improving. Abdomen: Soft, nontender. Extremities: No lower extremity edema. No localized back tenderness. She is able to raise both lower extremities above ground level. She is able to flex both of her knees. She is able to reposition herself in the bed. She has intact sensation to pinch in bilateral legs, hips, thigh, and gluteal regions. I am not able to assess reflexes properly since she has had knee surgeries before, and it was difficult to assess. After the fall though, she was able to stand up and take a few steps with the help of clinical support associate. LABS: Suggestive of creatinine of 1.1, BUN of 20. No new microbiological or imaging data. ASSESSMENT AND PLAN: 1. Acute metabolic encephalopathy due to baclofen use, on top of her baseline use of gabapentin and opioid use, now resolved. Head CT was unremarkable. 2. Chronic back pain, requiring multiple surgeries in the year 1999, 2009, and 2015. Continue home gabapentin, immediate release oxycodone. She was advised to have a discussion with the outpatient provider, pain doctor. [place] prescription drug monitoring program was checked. Her most recent refill was 05/01/2019. 3. Acute kidney injury, likely because of urine retention due to tolterodine use, now resolved. 4. Essential hypertension. 5. History of cerebrovascular accident. 6. History of deep venous thrombosis and pulmonary embolus, currently stable. Continue her home Pradaxa. 7. Disposition. Since the patient had an unwitnessed fall, I will monitor her inside the hospital. There are no new bruises. She is alert and oriented x3. There is no evidence of saddle anesthesia. Her recurrent fall could be related to her chronic back pain. There is no clinical evidence of spinal cord compression or intracranial hemorrhage. I will place social work/rehab consult. Plan of care discussed with her. Her questions have been answered. cc: Toni Downs MD
[2019-05-22] MEDS: LIPITOR PO SCH (20:52)
[2019-05-23] MEDS: OXY IR PO PRN (09:12)
[2019-05-23] MEDS: MIRALAX PO SCH (09:52)
[2019-05-23] MEDS: COLACE PO SCH (09:53)
[2019-05-23] MEDS: BENTYL PO SCH (09:53)
[2019-05-23] MEDS: IMITREX SUBQ SUBQ PRN (09:53)
[2019-05-23] MEDS: DETROL PO SCH (09:53)
[2019-05-23] MEDS: NEURONTIN PO SCH ×2 (09:53→13:03)
[2019-05-23] MEDS: PAXIL PO SCH (09:54)
[2019-05-23] MEDS: PRADAXA PO SCH (09:54)
[2019-05-23] MEDS: PROTONIX IV SCH (09:58)
[2019-05-23] MEDS: SODIUM CHLORIDE 0.9% INJ SCH (09:58)
--- NOTE | 2019-05-23 10:45 | DISCHARGE SUMMARY ---
ADMISSION DATE: 05/17/2019 DISCHARGE DATE: 05/22/2019 DISCHARGE DISPOSITION: Home with home health. DISCHARGE CONDITION: Alert oriented x3. Hemodynamically stable. DISCHARGE DIAGNOSES: 1. Acute metabolic encephalopathy related to baclofen use on top of opioid and gabapentin. 2. Acute migraine headache. 3. Acute kidney injury likely related to urinary retention. OTHER DIAGNOSES: 1. History of chronic back pain. 2. History of chronic migrainous headache. 3. History of essential hypertension, cerebrovascular accident . 4. History of deep venous thrombosis, pulmonary embolus Pradaxa and IVC filter. 5. Mechanical fall on current admission. At the time of presentation leading to right periorbital hematoma. 6. History of suspected inflammatory bowel disease. DISCHARGE MEDICATIONS: 1. Atorvastatin 20 mg at nighttime. 2. Cyanocobalamin 1000 mcg intramuscularly as directed every other week. 3. Tolterodine 2 mg b.i.d. 4. Dicyclomine 10 mg b.i.d. 5. Iron carbonyl 45 mg daily. 6. Gabapentin 800 mg t.i.d. 7. Oxycodone immediate release 10 mg t.i.d. as needed. Apparently in the medication reconciliation, it was documented as Oxycodone extended release. However [place] prescription drug monitoring program did not have specific mention if it was extended release versus immediate release and patient was not aware of that. She was advised to have follow-up with her pain doctor. 8. Potassium 10 mEq daily. 9. Dabigatran 150 mg b.i.d. 10. Pantoprazole 40 mg daily. 11. Sertraline 100 mg daily. 12. Sucralfate 1 tablet 4 times a day. 13. Vitamin D 5000 units daily as directed. 14. Etodolac 400 mg b.i.d. with meals. VITALS AT TIME OF DISCHARGE: Temperature 97.5 degrees, pulse 68, respiratory 20, blood pressure 125/95, saturating 100% room air. PHYSICAL EXAMINATION: Does not appear in acute distress. Oral cavity is moist. Right periorbital hematoma was improving. Air entry bilaterally equal, no wheeze, no rhonchi, no crackles. S1- S2 normal. No murmur or gallop. Abdomen: Soft, nontender. She has had multiple bowel movements. No lower extremity edema. She was alert and oriented x3. She was able to move in the bed and come out of bed spontaneously next. LABS: During hospital admission and discharge, WBC 11,000 hemoglobin 12, platelet count 286,000. Sodium 142, chloride 108, BUN 20, creatinine 1.1. MICROBIOLOGY: No data. IMAGING: Head/ cervical spine CT had right periorbital contusion without any acute injury to head or cervical spine. Chest x-ray on admission did not have any evidence of acute pathology. Abdomen and pelvis CT had severe constipation with rectal stool impaction and evidence of cystitis, though she did not complain of any urine symptoms and her urinalysis did not have pyuria. TOXICOLOGY: Urine toxicology was positive for presumptive oxycodone. HOSPITAL COURSE SUMMARY: Ms. Burt is a 68-year-old lady who presented on April05/17/2019 with chief complaints of altered mental status and recent falls. Apparently, patient had chronic back pain and had been on oxycodone gabapentin since a long time and recently for muscle spasm. She was started on baclofen by her primary care provider. The patient had taken about 3 tablets of baclofen within 24 hours prior to presentation following which she had sustained a fall and she was confused. When the caregiver saw her, she appeared really confused and she was found to have a right-sided periorbital hematoma so she was advised to come to the emergency room. In the emergency room, she was found to be moaning and groaning and confused so the hospitalist team was consulted for further management. The patient's baclofen were held and she was observed inside the hospital supportively. After the effects of baclofen wore off, she became alert and oriented. She was extensively counseled about having a discussion with her pain doctor as well as regular doctor about titrating her pain medications now considering adverse effect and not take baclofen anymore. Inside the hospital she also developed urinary retention with a bump in BUN and creatinine, and she was just advised to void after which her BUN creatinine had started coming down. She had also developed an episode of migraine for which sumatriptan was given. DISCHARGE INSTRUCTIONS: At the time of discharge, the patient was alert and oriented x3. She was advised to have follow up with her regular physician. Plan of care discussed with her. All of her questions were satisfactorily answered. ADDENDUM: Patient had an unwitnessed fall so the discharge was delayed by one day. A separate progress note is dictated as an addendum on 05/23. cc: MD ILIA Anne
[2019-05-23 11:49] VITALS: BP 114/71
[2019-05-23] MEDS ORDERED: PHENERGAN PO ONE (14:05)
--- NOTE | 2019-05-23 20:29 | DISCHARGE SUMMARY ---
ADMISSION DATE: 05/17/2019 DISCHARGE DATE: 05/23/2019 ADDENDUM/INTERVAL HISTORY: Yesterday before patient could be discharged home, she had an unwitnessed fall where she fell down on the floor; however, she was not found, though her room was right in front of the nursing station. No one really noticed that, and no one heard anything, until someone saw her lying on the floor. When the personnel arrived there, she was alert, and she was trying to get up. I evaluated her. She stated that she was trying to go to the bathroom, but certainly something happened and she fell down. She could not exactly tell me if her knees gave out. Unfortunately, she was not on telemetry at that time. I ordered a stat CT scan of the lumbar spine which did not detect any significant spinal cord compression, and she did not have any saddle anesthesia. On my clinical examination, her power was as good as before with 5/5 right ankle and hip joint, 4/5 left ankle and hip joint, which was baseline for her. I had decided to keep her in the hospital and advised her to go to rehab, which she initially agreed to; however, on 05/23/2019, she stated that she would rather go home than going to the rehab. I explained to her about benefits of rehab. I also explained to her that the CT scan was negative and telemetry did not have any acute events, and she may benefit from going to the rehab to help her get stronger; however, despite that she wanted to go home, and she said that she had already started talking with her home health about setting it up, so it was decided to discharge her. She was advised that she should have some support while walking and work on weight reduction. TIME SPENT: More than 30 minutes spent discharging this patient. This is an addendum to the discharge summary dictated on May 22. cc: MD MARGARETTE AnneD
== END 2019-05-23 16:37 | disposition home health service (06) | DRG 917 ==
LOC: ED 04:03 → SUATTDRO 10:17 → ICU 10:17 → 3N 05-19 14:40
PROVIDERS: ATTEND Internal Medicine